=== PATIENT | female | born 1980 | race Two or more races ===

== ENCOUNTER → 2022-05-23 08:00 | Outpatient (CLI) | payer OTHER ==
[~2022-05-23] VITALS: Ht 166.4 cm; Wt 61.2 kg
== END | disposition home or self-care (01) ==
LOC: LAB 08:00 → CIR.AMB 05-24 07:00 → SURH 05-24 07:00 → EDSTATUS 05-24 07:00
PROVIDERS: ATTEND Obstetrics & Gynecology
DX: N93.8 Other specified abnormal uterine and vaginal bleeding (principal)

== ENCOUNTER 2022-08-23 05:27 | Day surgery (SDC) | payer OTHER ==
[~2022-08-23] VITALS: Ht 165.1 cm; Wt 61.7 kg
== END 2022-08-23 16:25 | disposition home or self-care (01) ==
LOC: CIR.AMB 05:27
PROVIDERS: ATTEND Obstetrics & Gynecology
DX: N93.9 Abnormal uterine and vaginal bleeding, unspecified (principal); N84.0 Polyp of corpus uteri; Z88.0 Allergy status to penicillin; Z88.6 Allergy status to analgesic agent; Z91.010 Allergy to peanuts; Z20.822 Contact with and (suspected) exposure to COVID-19

== ENCOUNTER 2023-05-14 22:46 | Emergency (ER) | payer OTHER ==
[~2023-05-14] VITALS: Ht 165.1 cm; Wt 68.0 kg
== END 2023-05-15 03:04 | disposition home or self-care (01) ==
LOC: ER 22:46
DX: R11.10 Vomiting, unspecified (principal); K29.70 Gastritis, unspecified, without bleeding; Z88.0 Allergy status to penicillin; Z91.018 Allergy to other foods; Z88.6 Allergy status to analgesic agent

== ENCOUNTER 2023-09-12 16:26 | Emergency (ER) | payer OTHER ==
[~2023-09-12] VITALS: Ht 165.1 cm; Wt 62.6 kg
== END 2023-09-12 17:27 | disposition home or self-care (01) ==
LOC: ER 16:26
DX: J45.909 Unspecified asthma, uncomplicated (principal); Z88.6 Allergy status to analgesic agent; Z88.0 Allergy status to penicillin; Z91.018 Allergy to other foods

== ENCOUNTER 2023-12-20 03:50 | Emergency (ER) | payer OTHER ==
[~2023-12-20] VITALS: Ht 165.1 cm; Wt 63.5 kg
[2023-12-20] MEDS ORDERED: FAMOTIDINE/PF 20 MG/2 ML VIAL IV PUSH STA (04:49)
[2023-12-20] MEDS ORDERED: PROMETHAZINE HCL 50 MG/ML AMPUL IM STA (04:49)
[2023-12-20] MEDS ORDERED: 0.9 % SODIUM CHLORIDE 1,000 ML IV ONE (05:00)
[2023-12-20 05:21] LABS: HEMATOCRIT 26.6 % (36.0-45.00); MEAN CORPUSCULAR HGB CONC 31.1 g/dl (32.0-36.0); PLATELET COUNT 418 K/uL (150-450)
[2023-12-20 05:30] LABS: MEAN CORPUSCULAR HEMOGLOBIN 19.7 pg (27.00-32.0)
[2023-12-20 05:31] LABS: HEMOGLOBIN 8.3 g/dL (12.0-15.00); MEAN CELL VOLUME 63.4 fL (80.00-100.00)
[2023-12-20 05:52] LABS: ALBUMIN 3.6 gm/dL (3.4-5.0); ALKALINE PHOSPHATASE 62 U/L (50-136); ALT/SGPT 25 U/L (12-78); AMYLASE 82 U/L (25-115); ANION GAP 7 (10.0-20.0); AST/SGOT 14 U/L (15-37); BILIRUBIN TOTAL 0.35 mg/dL (0.3-1.2); BLOOD UREA NITROGEN 14 mg/dL (7-18); BUN CREA RATIO 20 (7.0-25.0); CALCIUM 8.6 mg/dL (8.5-10.1); CARBON DIOXIDE 25 mEq/L (21-32); CHLORIDE 110 mmol/L (98-107); GFR 92.21; GLOBULINA 3.6 G/DL (2.4-3.5); GLUCOSE FASTING 107 mg/dL (65-100); HCG QUANTITATIVE < 1 mUI/mL (1-3); LIPASE 28 U/L (13-75); OSMOLALITY SERUM 277 MOSM/KG (275-295); POTASSIUM 3.67 mEq/L (3.5-5.1); SODIUM 138 mmol/L (136-145); TOTAL PROTEIN 7.2 gm/dL (6.4-8.2)
[2023-12-20 11:00] LABS: URINE APPEARANCE Clear; URINE BILIRRUBIN Negative (NEGATIVE); URINE BLOOD Negative; URINE COLOR Yellow; URINE GLUCOSE Negative (NEGATIVE); URINE LEUKOCYTE Negative; URINE NITRATE Negative; URINE PROTEIN Negative (NEGATIVE); URINE UROBILINOGEN 0.2 E.U./dl
[2023-12-20 11:09] LABS: URINE BACTERIA 284.6 uL (0.0-1933); URINE EPITHELIAL CELLS 5.8 uL (0.0-38.8); URINE WBC 1.8 uL (0.0-23.2)
[2023-12-20 11:18] LABS: URINE RBC 1.1 uL (0.0-20.8)
[2023-12-20] MEDS ORDERED: ONDANSETRON HCL 2 MG/ML VIAL IV STA (11:28)
== END 2023-12-20 14:07 | disposition home or self-care (01) ==
LOC: ER 03:50
PROVIDERS: General Practice
DX: K29.70 Gastritis, unspecified, without bleeding (principal); Z88.0 Allergy status to penicillin; Z88.8 Allergy status to other drugs, medicaments and biological substances; Z88.6 Allergy status to analgesic agent; Z91.010 Allergy to peanuts

== ENCOUNTER 2025-08-25 11:00 | Day surgery (SDC) | payer OTHER ==
[2025-08-17 08:36] VITALS: BP 117/74
[2025-08-17 10:00] LABS: BASO % 0.7 % (0.1-1.2); EOS # 0.08 (0.04-0.54); EOS % 1.8 % (0.7-7.0); LYMPH # 1.12 (1.18-3.74); LYMPH % 24.6 % (19.3-53.1); MEAN PLATELET VOLUME 11.00 fl (9.4-12.4); MONO # 0.41 (0.24-0.82); MONO % 9.0 % (4.7-12.5); NEUT # 2.91 (1.56-6.13); NEUT % 63.7 % (34.0-71.1); RED CELL DISTRIBUTION WIDTH 24.0 % (11.6-14.4)
[2025-08-17 10:13] LABS: URINE APPEARANCE Clear; URINE BILIRRUBIN Negative (NEGATIVE); URINE BLOOD Negative; URINE COLOR Yellow; URINE GLUCOSE Negative (NEGATIVE); URINE KETONE Negative (NEGATIVE); URINE LEUKOCYTE Negative; URINE NITRATE Negative; URINE PROTEIN Negative (NEGATIVE); URINE UROBILINOGEN 0.2 E.U./dl
[2025-08-17 10:23] LABS: INR 1.01
[2025-08-17 10:28] LABS: URINE BACTERIA 74.3 uL (0.0-1933); URINE EPITHELIAL CELLS 14.1 uL (0.0-38.8); URINE WBC 2.9 uL (0.0-23.2)
[2025-08-17 10:38] LABS: URINE CAST 0.43 uL (0.0-1.40); URINE RBC 1.4 uL (0.0-20.8)
[2025-08-17 10:55] LABS: ALT/SGPT 51.0 U/L (12-78); AST/SGOT 24.0 U/L (15-37); BILIRUBIN TOTAL 0.46 mg/dL (0.3-1.2); BUN CREA RATIO 32.0 (7.0-25.0); CREATININE SERUM 0.62 mg/dL (0.55-1.02); GFR 105.06; GLOBULINA 3.6 G/DL (2.4-3.5); GLUCOSE FASTING 79.0 mg/dL (65-100); OSMOLALITY SERUM 283.0 MOSM/KG (275-295)
[~2025-08-25] VITALS: Ht 165.1 cm; Wt 65.8 kg
[2025-08-25] MEDS ORDERED: PROMETHAZINE HCL 50 MG/ML AMPUL IM ONE (14:00)
== END 2025-08-25 18:30 | disposition home or self-care (01) ==
LOC: CIR.AMB 11:00
PROVIDERS: ATTEND Student in an Organized Health Care Education/Training Program
DX: N93.8 Other specified abnormal uterine and vaginal bleeding (principal); D25.0 Submucous leiomyoma of uterus; Z88.0 Allergy status to penicillin; Z88.6 Allergy status to analgesic agent